=== PATIENT | male | born 1985 | race African-American/Black ===

== ENCOUNTER 2018-05-08 18:08 | Inpatient (IN) | payer BC, OTHER ==
[2018-05-08] MEDS ORDERED: Ondansetron PF 4 MG/2 ML Vial ONE (18:25)
[2018-05-08] MEDS ORDERED: Morphine 4 MG/ML VIAL ONE ×2 (18:27→21:19)
[2018-05-08 18:41] LABS: Hemoglobin 15.4 g/dL (14.0-18.0); Mean Corpuscular HGB CONC 34.6 g/dL (32.0-36.0); Mean Corpuscular Hemoglobin 30.4 pg (27.0-31.0); Mean Corpuscular Volume 87.9 fL (78.0-98.0); Mean Platelet Volume 6.5 fL (7.4-10.4); Platelet Count 307 thou/uL (130-400); RBC Distribution Width 11.2 % (11.5-14.5); Red Blood Cell (RBC) Count 5.09 mill/uL (4.70-6.10); White Blood Cell (WBC) Count 7.3 thou/uL (4.8-10.8)
[2018-05-08 18:50] LABS: Eosinophils 4 % (0-10); Lymphocytes 49 % (21-51); MDiff Complete? YES; Monocytes 4 % (0-10); Neutrophil 40 % (42-75); PLT Morphology Comment Appears Adequate; RBC Morphology Normal; Reactive Lymphocytes 2 % (0-10)
[2018-05-08 18:57] LABS: ALT (SGPT) 13 U/L (8-55); AST (SGOT) 15 U/L (5-34); Albumin 4.6 g/dL (3.5-5.0); Alkaline Phosphatase 40 U/L (40-150); Anion Gap 10 mmol/L (10-20); BUN (Urea Nitrogen) 9 mg/dL (8.9-20.6); Bilirubin, Total 0.4 mg/dL (0.2-1.2); Calc. Creatinine Clearance 0 mL/min (70-130); Calcium 9.5 mg/dL (7.8-10.44); Carbon Dioxide 29 mmol/L (22-29); Chloride 103 mmol/L (98-107); Estimated GFR-MDRD Greater than 90; Globulin 2.5 g/dL (2.4-3.5); Glucose 116 mg/dL (70-105); Lipase 12 U/L (8-78); Potassium 3.2 mmol/L (3.5-5.1); Protein, Total 7.1 g/dL (6.0-8.3); Sodium 139 mmol/L (136-145)
[2018-05-08 19:03] LABS: Bilirubin Negative (Negative); Blood, Urine Large (Negative); Clarity CLEAR (Clear); Glucose, Urine (Dipstick) Negative (Negative); Leukocyte Negative (Negative); Nitrite Negative (Negative); Protein, Urine (Dipstick) Negative (Neg-Trace); Specific Gravity, Urine 1.023 (1.002-1.036); Urobilinogen 0.2 mg/dL (0.2-1.0); pH, Urine 6.5 (5.0-9.0)
[2018-05-08 19:12] LABS: Bacteria/HPF None Seen HPF (None Seen); Hyaline Casts/LPF 0-3 HYALINE CAST LPF (0-3 Hyaline); RBC/HPF GREATER THAN 50-TNTC HPF (0-3); Squamous Epithelial 0-3 HPF (0-3); WBC/HPF 0-3 HPF (0-3)
--- NOTE | 2018-05-08 21:03 | CT ---
CT OF THE ABDOMEN AND PELVIS WITH IV AND ENTERIC CONTRAST: 05/08/18 PROVIDED CLINICAL HISTORY: Right lower quadrant abdominal pain. FINDINGS: Comparison is made with the examination performed 02/10/08. The visualized lung bases are free of significant opacity. There are several tiny nonobstructing nicole l calculi present. The solid abdominal organs demonstrated an otherwise unremarkable CT appearance. There is no bowel dilatation, inflammatory fat stranding, free fluid, or free air apparent. The appen venkat appears normal proximally. The distal aspects of the appendix demonstrate minimal internal fluid density and minimal mural thickening. This portion of the appendix is retrocecal. The osseous structures demonstrate no concerning lytic or blastic lesions. IMPRESSION: 1. Tiny nonobstructing renal calculi. 2. The distal aspects of the appendix demonstrate minimal internal fluid density and mural thick ening without surrounding inflammatory change. these findings are overall nonspecific but could be se en in an early appendicitis. POS: [facility]
[2018-05-08] MEDS ORDERED: cefOXitin Sodium/Dextrose,Iso 2 GM in Premix Bag 1 BAG IVPB SCH (21:30)
[2018-05-08] MEDS ORDERED: Morphine 4 MG/ML VIAL SLOW IVP PRN (22:42)
[2018-05-08] MEDS ORDERED: Ondansetron ODT 4 MG TAB SL PRN (22:43)
[2018-05-08] MEDS ORDERED: Ondansetron PF 4 MG/2 ML Vial IVP PRN (22:43)
[2018-05-08 22:54] VITALS: BMI 27.0
[2018-05-08] MEDS: Dextrose 5 % And 0.9 % NaCl 1,000 ML IV SCH (23:07)
[2018-05-09] MEDS: Dextrose 5 % And 0.9 % NaCl 1,000 ML IV SCH (05:34)
[2018-05-09] MEDS ORDERED: Sodium Chloride 0.9% 1,000 ML IV SCH (07:30)
--- NOTE | 2018-05-09 08:44 | HP ---
HISTORY OF PRESENT ILLNESS: Leatha Bah is a 32-year-old white male, email marketing assistant, who presents with slightly less than 24-hour history of right lower quadrant pain, nausea, vomiting, anorexia. Pain is worse with movement. He presented to the emergency room, white count of 7, hemoglobin 15. CAT scan revealed changes consistent with appendicitis. ALLERGIES: NONE. SOCIAL HISTORY: Tobacco none. Alcohol none. MEDICATIONS: None. PAST SURGICAL HISTORY: Noncontributory. PAST MEDICAL HISTORY: Noncontributory. REVIEW OF SYSTEMS: Ten-point noncontributory. FAMILY HISTORY: Noncontributory. PHYSICAL EXAMINATION: VITAL SIGNS: Height 5 feet, 4 inches, weight 157 pounds, 27 BMI, 98 degrees, pulse rate 70, respiratory rate 20, blood pressure 112/72. HEAD, EARS, EYES, NOSE, AND THROAT: Unremarkable. Sclerae nonicteric. LUNGS: Clear to auscultation. CARDIAC: Regular rate and rhythm. No murmur or gallop. ABDOMEN: Soft. Tenderness in his right lower quadrant. No guarding or rebound. EXTREMITIES: Unremarkable. SKIN: Nonjaundiced. NEUROLOGICAL: Intact. No focal deficits. ASSESSMENT AND PLAN: Acute appendicitis. I recommend laparoscopic video appendectomy. Risks of infection, bleeding, visceral injury explained. Possible open procedure explained. He consents. Job ID: [id number]
[2018-05-09] MEDS ORDERED: Piperacillin/Tazobactam 3.375 GM in Sodium Chloride 0.9% 100 ML IVPB SCH (12:00)
[2018-05-09] MEDS ORDERED: Bupivacaine HCl 0.5%/Epinephrine 1:200,000/PF 30 ml Vial ONE (14:03)
[2018-05-09] MEDS ORDERED: Fentanyl 100 MCG/2 ML VIAL ONE ×2 (14:04→15:27)
[2018-05-09] MEDS ORDERED: Ibuprofen 600 MG TAB PO PRN (14:33)
[2018-05-09] MEDS ORDERED: traMADol HCl 50 MG TAB PO PRN ×2 (14:33)
[2018-05-09] MEDS ORDERED: Acetaminophen 500 MG TAB PO PRN (14:33)
[2018-05-09] MEDS ORDERED: Meperidine HCl/PF 25 MG/ML VIAL SLOW IVP PRN (14:59)
[2018-05-09] MEDS ORDERED: Promethazine HCl 25 MG/ML VIAL SLOW IVP PRN (14:59)
[2018-05-09] MEDS ORDERED: Promethazine HCl 25 MG/ML VIAL IM PRN (14:59)
[2018-05-09] MEDS ORDERED: Ondansetron HCl/PF 4 MG/2 ML Vial IVP PRN (14:59)
[2018-05-09 16:20] VITALS: BP 143/86; TEMP 97.7
[2018-05-09] MEDS ORDERED: Enoxaparin Sodium 40 MG/0.4 ML SYRINGE SC SCH (21:00)
--- NOTE | 2018-05-10 01:05 | OP ---
DATE OF PROCEDURE: 05/09/2018 PREOPERATIVE DIAGNOSES: Acute appendicitis by CAT scan and exam. POSTOPERATIVE DIAGNOSIS: Acute appendicitis by CAT scan and exam, possible early appendicitis. PROCEDURES PERFORMED: Laparoscopic video appendectomy, long retrocecal appendix. ANESTHESIA: General with local 0.5% Marcaine with epinephrine, 30 mL. INDICATIONS: The patient presents to the emergency room with right lower quadrant pain, severe, normal white count. CAT scan suggests appendicitis. He is hospitalized overnight. An appendectomy performed. He had persistent pain in his right lower quadrant. DESCRIPTION OF PROCEDURE: The patient was taken to the operating room, where under general anesthesia, Us catheter was placed at the beginning of the procedure and removed at the end. Abdomen was clipped, prepared with ChloraPrep, and draped in routine fashion. Local anesthetic 0.5% Marcaine with epinephrine 30 mL, infiltrated in the skin and subcutaneous tissue at each port site. An infraumbilical incision was made, pneumoperitoneum to 15 mmHg was obtained with the Veress needle, replaced with a 5 port where laparoscope was inserted. A right subcostal incision was made and a 5 port was placed, suprapubic incision was made. A 12 port placed. Appendix noted to be retrocecal. It was dissected free. Mesoappendix was taken down with the LigaSure. The stump of the appendix divided with Endo blue load ARNIE stapler. The stapled cecal stump was was hemostatic and secured. His appendix removed, submitted to Pathology. Appendix was perhaps slightly enlarged to the tip, questionable early appendicitis. Good hemostasis ensured. Irrigant and pneumoperitoneum evacuated. All instruments were removed, and all skin incisions were approximated with subdermal 4-0 Monocryl after suprapubic fascia was approximated with 0 Vicryl single interrupted suture. Job ID: [id number]
--- NOTE | 2018-05-10 07:45 | DIS ---
DATE OF ADMISSION: 05/08/2018 DATE OF DISCHARGE: 05/09/2018 DISCHARGE DIAGNOSIS: Abdominal pain, possible early appendicitis. PROCEDURES: CAT scan of the abdomen and pelvis in the ER suggesting early appendicitis with inflammatory changes and retrocecal appendix in the distal tip. Normal white count. HISTORY: A 32-year-old history for appendicitis, presents to the emergency room. Exam suggested appendicitis, CAT scan suggested, he was admitted overnight fluids and antibiotics, and taken to the operating room next morning for laparoscopic video appendectomy. Appendix appeared to be normal, perhaps early appendicitis at the tip. Pathology pending. The patient was discharged home postoperatively. Take ibuprofen, Tylenol, or tramadol as indicated. Diet and activity as tolerated. Job ID: [id number]
== END 2018-05-09 20:05 | disposition home or self-care (01) | DRG 343 ==
LOC: ERS 18:08 → T4-B 21:06
PROVIDERS: ADMIT Specialist; ATTEND Specialist
PROC: 0DTJ4ZZ Resection of Appendix, Percutaneous Endoscopic Approach (ICD-10-PCS; principal; 2018-05-09)
DX: K35.80 Unspecified acute appendicitis (principal)
CPT/HCPCS: 74177; 80053; 81003; 81015; 83690; 85025; 88304; 96361; 96365; 96375; 96376; J0131; J0670; J2270; J2405; J2543; J3010; J7050

== ENCOUNTER 2018-10-08 17:23 | Emergency (ER) | payer BC ==
[2018-10-08 17:58] LABS: #Eosinphils 0.2 thou/uL (0.0-0.7); #Lymphocytes 2.6 thou/uL (1.20-3.40); #Monocytes 0.5 thou/uL (0.11-0.59); %Basophils 0.5 % (0.0-1.0); %Eosinophils 2.7 % (0.0-10.0); %Monocytes 7.4 % (0.0-10.0); %Neutrophils 48.4 % (42.0-75.0); Hemoglobin 14.7 g/dL (14.0-18.0); Mean Corpuscular HGB CONC 34.1 g/dL (32.0-36.0); Mean Corpuscular Hemoglobin 29.7 pg (27.0-31.0); Mean Corpuscular Volume 87.1 fL (78.0-98.0); Mean Platelet Volume 6.3 fL (7.4-10.4); Platelet Count 299 thou/uL (130-400); RBC Distribution Width 11.2 % (11.5-14.5); Red Blood Cell (RBC) Count 4.94 mill/uL (4.70-6.10); White Blood Cell (WBC) Count 6.2 thou/uL (4.8-10.8)
[2018-10-08 18:19] LABS: ALT (SGPT) 16 U/L (8-55); AST (SGOT) 15 U/L (5-34); Albumin 4.9 g/dL (3.5-5.0); Alkaline Phosphatase 54 U/L (40-150); Anion Gap 11 mmol/L (10-20); BUN (Urea Nitrogen) 9 mg/dL (8.9-20.6); Bilirubin, Total 0.5 mg/dL (0.2-1.2); CK (CPK) 165 U/L (30-200); Calc. Creatinine Clearance 0 mL/min (70-130); Calcium 10.3 mg/dL (7.8-10.44); Carbon Dioxide 29 mmol/L (22-29); Chloride 106 mmol/L (98-107); Estimated GFR-MDRD Greater than 90; Globulin 2.5 g/dL (2.4-3.5); Glucose 87 mg/dL (70-105); Potassium 4.2 mmol/L (3.5-5.1); Protein, Total 7.4 g/dL (6.0-8.3); Sodium 142 mmol/L (136-145)
--- NOTE | 2018-10-08 18:20 | RAD ---
AP view chest. HISTORY: Weakness for 2 days. AP view chest demonstrates the lungs to be well aerated. No evidence of active intrathoracic disease seen. No evidence of effusions, pneumonia or pneumothorax seen. IMPRESSION: Unremarkable AP view chest.
[2018-10-08 18:50] LABS: Bilirubin Negative (Negative); Blood, Urine Negative (Negative); Clarity CLEAR (Clear); Glucose, Urine (Dipstick) Negative (Negative); Leukocyte Negative (Negative); Nitrite Negative (Negative); Protein, Urine (Dipstick) Negative (Neg-Trace); Specific Gravity, Urine 1.027 (1.002-1.036); Urobilinogen 0.2 mg/dL (0.2-1.0)
== END 2018-10-08 19:30 | disposition home or self-care (01) ==
LOC: ERS 17:23
DX: R53.1 Weakness (principal); F32.9 Major depressive disorder, single episode, unspecified
CPT/HCPCS: 36415; 71045; 80053; 81003; 82550; 83605; 83690; 84484; 85025; 93005; 94760; 96360

== ENCOUNTER 2019-03-28 18:00 | Emergency (ER) | payer BC | END 2019-03-28 19:21 | disposition home or self-care (01) | LOC: ERS 18:00 | DX: S39.012A Strain of muscle, fascia and tendon of lower back, initial encounter (principal); F32.9 Major depressive disorder, single episode, unspecified; X50.0XXA Overexertion from strenuous movement or load, initial encounter | CPT/HCPCS: 99283 ==

== ENCOUNTER 2019-08-25 16:47 | Emergency (ER) | payer BC, OTHER | END 2019-08-25 17:12 | disposition home or self-care (01) | LOC: ERS 16:47 | DX: J02.8 Acute pharyngitis due to other specified organisms (principal); F32.9 Major depressive disorder, single episode, unspecified | CPT/HCPCS: 99283 ==

== ENCOUNTER 2019-11-06 10:29 | Emergency (ER) | payer BC | END 2019-11-06 10:41 | disposition home or self-care (01) | LOC: ERS 10:29 | DX: M25.562 Pain in left knee (principal); Z87.442 Personal history of urinary calculi | CPT/HCPCS: 99283 ==

== ENCOUNTER 2020-01-23 08:30 | Emergency (ER) | payer BC ==
--- NOTE | 2020-01-23 08:55 | RAD ---
RIGHT ANKLE 3 VIEWS: HISTORY: Injury, right ankle pain FINDINGS: Soft tissue swelling is present. The ankle mortise is maintained. No acute fracture or dislocation is identified.
== END 2020-01-23 10:53 | disposition home or self-care (01) ==
LOC: ERS 08:30
DX: M25.571 Pain in right ankle and joints of right foot (principal); X50.1XXA Overexertion from prolonged static or awkward postures, initial encounter

== ENCOUNTER 2020-07-22 08:17 | Emergency (ER) | payer BC | END 2020-07-22 09:32 | disposition home or self-care (01) | LOC: ERS 08:17 | DX: S33.5XXA Sprain of ligaments of lumbar spine, initial encounter (principal); X50.0XXA Overexertion from strenuous movement or load, initial encounter; Y93.E6 Activity, residential relocation | CPT/HCPCS: 99283 ==

== ENCOUNTER 2020-07-25 08:09 | Emergency (ER) | payer BC ==
[2020-07-25 08:35] LABS: #Basophils 0.1 thou/uL (0.0-0.2); #Eosinphils 0.2 thou/uL (0.0-0.7); #Monocytes 0.5 thou/uL (0.11-0.59); %Basophils 0.9 % (0.0-1.0); %Eosinophils 2.8 % (0.0-10.0); %Lymphocytes 35.5 % (21.0-51.0); %Monocytes 8.7 % (0.0-10.0); %Neutrophils 52.1 % (42.0-75.0); Hemoglobin 14.8 g/dL (14.0-18.0); Mean Corpuscular HGB CONC 34.2 g/dL (32.0-36.0); Mean Corpuscular Hemoglobin 30.1 pg (27.0-31.0); Mean Corpuscular Volume 87.9 fL (78.0-98.0); Mean Platelet Volume 6.2 fL (7.4-10.4); Platelet Count 292 thou/uL (130-400); RBC Distribution Width 11.4 % (11.5-14.5); Red Blood Cell (RBC) Count 4.91 mill/uL (4.70-6.10); White Blood Cell (WBC) Count 5.7 thou/uL (4.8-10.8)
[2020-07-25 09:01] LABS: ALT (SGPT) 19 U/L (8-55); AST (SGOT) 14 U/L (5-34); Albumin 4.5 g/dL (3.5-5.0); Alkaline Phosphatase 45 U/L (40-110); Anion Gap 13 mmol/L (10-20); BUN (Urea Nitrogen) 12 mg/dL (8.9-20.6); Bilirubin, Total 0.7 mg/dL (0.2-1.2); Calc. Creatinine Clearance 0 mL/min (70-130); Calcium 9.3 mg/dL (7.8-10.44); Carbon Dioxide 26 mmol/L (22-29); Chloride 105 mmol/L (98-107); Globulin 2.6 g/dL (2.4-3.5); Glucose 98 mg/dL (70-105); Lipase 9 U/L (8-78); Potassium 3.8 mmol/L (3.5-5.1); Protein, Total 7.1 g/dL (6.0-8.3); Sodium 140 mmol/L (136-145)
== END 2020-07-25 08:54 | disposition home or self-care (01) ==
LOC: ERS 08:09
DX: K92.1 Melena (principal)
CPT/HCPCS: 36415; 80053; 83690; 85025; 99284

== ENCOUNTER 2020-09-11 10:12 | Emergency (ER) | payer BC ==
[2020-09-11] MEDS ORDERED: Ondansetron ODT 4 MG TAB ONE (11:15)
== END 2020-09-11 11:29 | disposition home or self-care (01) ==
LOC: ERS 10:12
DX: R11.2 Nausea with vomiting, unspecified (principal)
CPT/HCPCS: 99283; Q0162

== ENCOUNTER 2021-02-08 11:33 | Emergency (ER) | payer BC | END 2021-02-08 16:15 | disposition home or self-care (01) | LOC: ERS 11:33 | DX: M54.5 Low back pain (principal) | CPT/HCPCS: 99283 ==

== ENCOUNTER 2021-05-13 07:21 | Emergency (ER) | payer BC | END 2021-05-13 08:55 | disposition home or self-care (01) | LOC: ERS 07:21 | DX: J06.9 Acute upper respiratory infection, unspecified (principal) | CPT/HCPCS: 99283 ==